=== PATIENT | female | born 1985 | race Caucasian/White ===

== ENCOUNTER → 2017-10-30 15:03 | Outpatient (CLI) | payer SELFPAY ==
[2017-10-30 15:49] LABS: Glucose Challenge Gest 1H 50g 86 mg/dL (70-140)
== END ==
PROVIDERS: Family Provider Family Medicine; PCP Family Medicine; Visit Provider Obstetrics & Gynecology
DX: Z34.90 Encounter for supervision of normal pregnancy, unspecified, unspecified trimester (principal); Z3A.00 Weeks of gestation of pregnancy not specified
CPT/HCPCS: 36415; 82950

== ENCOUNTER → 2017-12-24 17:17 | Outpatient (CLI) | payer SELFPAY ==
[2017-12-24 21:06] LABS: Group B Strep DNA By PCR Negative (Negative); Internal Control PASS; Probe Check PASS; Specimen Processing Control PASS
== END ==
PROVIDERS: Visit Provider Obstetrics & Gynecology
DX: Z34.82 Encounter for supervision of other normal pregnancy, second trimester (principal); Z3A.00 Weeks of gestation of pregnancy not specified
CPT/HCPCS: 87081; 87653

== ENCOUNTER → 2017-12-31 18:10 | Outpatient (CLI) | payer SELFPAY ==
[2017-12-31 20:29] LABS: Group B Strep DNA By PCR Negative (Negative); Internal Control PASS; Probe Check PASS; Specimen Processing Control PASS
== END ==
PROVIDERS: Visit Provider Obstetrics & Gynecology
DX: Z34.82 Encounter for supervision of other normal pregnancy, second trimester (principal)
CPT/HCPCS: 87081; 87653

== ENCOUNTER 2018-01-18 09:55 | Inpatient (IN) | payer SELFPAY ==
[2018-01-14 08:55] VITALS: BMI 31.5
--- NOTE | 2018-01-14 10:31 | PCM.HPOB.BLA ---
History and Physical Date of Admission: 01/18/18 Vital Signs 01/14/18 Height 5 ft 5 in 01/14/18 Weight: 189 lb 6 oz 01/14/18 Body Mass Index (BMI) 31.5 01/14/18 Blood Pressure 108/60 Intake Visit Reasons: 38 WEEKS Chief Complaint: est ob Commissioner Of Officials Required: No Is patient in pain?: No Allergies No Known Allergies Allergy (Verified 01/14/18 10:16) Medications vitamin,calcium,eqtdwraz-srvs-blysl acid tablet 1 tab PO QDAY 10/30/17 [History Confirmed 01/14/18] Last Menstral Period: 04/04/17 Zika: Zika virus screening: Negative : No PFSH PFSH Social History Smoking Status: Never smoker alcohol intake: never substance use type: does not use what type of physical activity do you participate in: none seatbelt use: always do you feel safe at home: Yes Pregancy History 4 Elective abortions Hx Para 2 Spontaneous abortions Hx # Term Pregnancies Ectopic pregnancies Hx # Pregnancies Multiple births # of living children Past Pregnancies Del. Date Name GA/Weeks Outcome Route Bth Weight Infant Gen Labor Lgth Anesthesia Del Locatn Provider FOB Unknown 05/07/2013 Della Unknown Eliecer 01/07/2016 HPI 38 WEEKS: Details: SEVEN STEWARD is a 32 year old who presents for routine OB visit. this is also her peop appointment and she is planning a RLTCS and BTL urine 2 dip glucose negative protein trace OB Visit BOGDAN Calculator Estimated Delivery Date 01/23/18 Based on Ultrasound Date 06/26/17 Current WG 38w 5d Number 1 Expected Delivery Route/Plan RLTCS BTL Specific Issue/Plans flu vaccine declined tdap declined labor support person: Fredo pain management: R cs with BTO : yes PP control planned: BTO special requests: [] Initial Weight: Not Recorded Date EGA Weight BP Urine Prot Glucose FHR FuHt Pres Mov CTX Dilation Effaced St Visit Note Provider Comments 10/30/17 27w 6d 183 lb 6 oz 125/60 150 28 Active absent no vb cramping doing wel SM 11/13/17 29w 6d 184 lb 8 oz 107/63 150 29 Cephalic Active absent no vb lof good fm no regular ctx SM 11/27/17 31w 6d 186 lb 6 oz 107/63 117/68 107/63 Negative Negative 138 31 Cephalic Active absent no vb lof good fm no regular ctx Doing Doing well, some round ligament discomfort. Denies CTX, LOF, VB 12/10/17 33w 5d 188 lb 2 oz 122/69 Negative Negative 140 34 Cephalic Active absent Doing well, some round ligament discomfort. Denies CTX, LOF, VB no vb lof good fm no regular ctx 12/24/17 35w 5d 188 lb 4 oz 117/70 Positive Negative 140 35 Cephalic Active absent 1 5: 0 -4 Doing well, some round ligament discomfort. Denies CTX, LOF, VB no vb lof good fm no regular ctx 12/31/17 36w 5d 191 lb 116/72 Negative Negative 130 Cephalic Active absent 1.5 Doing well, some round ligament discomfort. Denies CTX, LOF, VB 01/07/18 37w 5d 188 lb 2 oz 119/77 1+ Negative 156 37 Cephalic Active absent Doing well, some round ligament discomfort. Denies CTX, LOF, VB NO CTX. Good FM. No VB, LOF 01/14/18 38w 5d 189 lb 6 oz 108/60 150 Cephalic Active absent 1.5 5: 0 Doing well, some round ligament discomfort. Denies CTX, LOF, VB Visit Notes Visit Date: 01/14/18 Doing well, some round ligament discomfort. Denies CTX, LOF, VB Brenad [place], FICTION [employer] NONFICTION AUTHOR-C on 11/27/17 Doing well, some round ligament discomfort. Denies CTX, LOF, VB Brenda [place], FICTION AND NONFICTION AUTHOR-C on 11/27/17 Visit Date: 01/07/18 NO CTX. Good FM. No VB, LOF Brenda [place], FICTION AND NONFICTION AUTHOR-C on 01/07/18 Doing well, some round ligament discomfort. Denies CTX, LOF, VB Brenda Tunde, FICTION AND NONFICTION AUTHOR-C on 11/27/17 Doing well, some round ligament discomfort. Denies CTX, LOF, VB Brenda [place], FICTION AND NONFICTION AUTHOR-C on 11/27/17 Visit Date: 12/31/17 Doing well, some round ligament discomfort. Denies CTX, LOF, VB Brenda [place], FICTION AND NONFICTION AUTHOR-C on 11/27/17 Doing well, some round ligament discomfort. Denies CTX, LOF, VB Brenda Tunde, FICTION AND NONFICTION AUTHOR-C on 11/27/17 Visit Date: 12/24/17 no vb lof good fm no regular ctx Lindsay Sandhu MD on 12/24/17 Doing well, some round ligament discomfort. Denies CTX, LOF, VB Brenda Tunde, FICTION AND NONFICTION AUTHOR-C on 11/27/17 Doing well, some round ligament discomfort. Denies CTX, LOF, VB Brenda Tunde, FICTION AND NONFICTION AUTHOR-C on 11/27/17 Visit Date: 12/10/17 no vb lof good fm no regular ctx Lindsay Sandhu MD on 12/10/17 Doing well, some round ligament discomfort. Denies CTX, LOF, VB Brenda Tunde, FICTION AND NONFICTION AUTHOR-C on 11/27/17 Doing well, some round ligament discomfort. Denies CTX, LOF, VB Brenda Tunde, FICTION AND NONFICTION AUTHOR-C on 11/27/17 Visit Date: 11/27/17 Doing well, some round ligament discomfort. Denies CTX, LOF, VB Brenda Tunde, FICTION AND NONFICTION AUTHOR-C on 11/27/17 Doing Brenda [place], FICTION AND NONFICTION AUTHOR-C on 11/27/17 no vb lof good fm no regular ctx Lindsay Sandhu MD on 11/13/17 no vb lof good fm no regular ctx Lindsay Sandhu MD on 11/13/17 Visit Date: 11/13/17 no vb lof good fm no regular ctx Lindsay Sandhu MD on 11/13/17 Visit Date: 10/30/17 no vb cramping doing wel Lindsay Sandhu MD on 11/01/17 Diagnostics Diagnostics Labs Blood Type A POSITIVE 07/31/17 Antibody Screen NEGATIVE 07/31/17 Hct 33.0 % (37-47) L 07/31/17 Hgb 11.6 g/dl (12.0-15.0) L 07/31/17 Obstetrics Ultrasound 08/31/17 Rubella IgG Antibody 227.7 IU/mL 07/31/17 RPR NONREACTIVE (NONREACTIVE) 07/31/17 Hep Bs Antigen Negative (Negative) 07/31/17 Chlam trachomat DNA PCR Negative (Negative) 06/26/17 N.gonorrhoeae DNA (PCR) Negative (Negative) 06/26/17 Glucose 1 Hr 50 gm 86 mg/dL (70-140) 10/30/17 Group B Strep DNA Negative (Negative) 12/31/17 Details: HIV: Urine Culture: Sequential Screen: NIPT Screen: ROS Const Denies fever(s) GI Denies abdominal pain, Reports as per HPI Denies vaginal discharge, Denies abnormal vaginal bleeding, Reports as per HPI Exam Const General: healthy appearing, comfortable, no acute distress HENMT Head: normal to inspection Nose: external nose normal Face and sinus: normal facial exam Neck Neck: normal visual inspection, full ROM, no lymphadenopathy Thyroid: thyroid normal Chest Chest palpation & inspection: normal inspection of the chest Resp Effort & Inspection: normal respiratory effort GI Inspection: normal to inspection Palpation: soft, nontender Assessment & Plan Problems 1. Continuing after spontaneous of one fetus or more, second trimester, fetus 1 O31.12X1 2. Encounter for supervision of other normal in second trimester Z34.82 PRR BOGDAN 01/23/18 boy REJI Shane Gonzálesil Fredo 3. History of delivery Z98.891 plan repeat cs and BTL- 74% likelihood of success, declines unless spontaneous labor Plan plan RLTCS and BTL thursday Orders placed: none movement and labor precautions reviewed. ACOG trimester education reviewed and updated. see problem list details for updated plan management information. GA appropriate handout given. Orders Orders: POC Urinalysis 2 Dip (Clinic) Today Coding Level of Care Code OB Routine Diagnoses Continuing after spontaneous of one fetus or more, second trimester, fetus 1 O31.12X1 Encounter for supervision of other normal in second trimester Z34.82 Normal : other normal Trimester: second trimester History of delivery Z98.891
[2018-01-18] VITALS (17 sets, daily range): BP systolic 101–118; BP diastolic 52–70; PULSE 62–77; RESP 16–18; TEMP 36–36.9; O2SAT 16–100; BMI 31.2
--- NOTE | 2018-01-18 | FALS_PTH ---
PATIENT: SEVEN STEWARD LOC: [facility] U#:[id number] AGE/SX: 32/F ROOM: WP010 RE01/18/[address]: Dr. Lindsay Sandhu MD : 1985 BED: 1 DIS: 01/20/2018 SPEC #: [id number] RECD: 01/18/18 14:46 STATUS: SAMANTHA REEspinoza #: [id number] MAHENDRA: 01/18/18 00:[address]: Davie De La Cruz DEPT: SURGICAL PATHOLOGY RECD BY: Geovani Anders ENTERED: 01/18/18 14:46 SP TYPE: FALL TUBES OTHR DR: Dr. Lindsay Sandhu MD No Primary Care Phys Tissues: Fallopian tube Procedures: Surgery Specimen Level II HEADER OPERATION: Tubal ligation PRE-OP DIAGNOSIS: Routine TISSUE SUBMITTED: Fallopian tubes, suture in left tube MICROSCOPIC DIAGNOSIS Bilateral fallopian tubes, tubal ligation: Completely transected segments of bilateral fallopian tubes, no pathologic diagnosis. :olaf 01/19/18 MICROSCOPIC DESCRIPTION Slides are reviewed. GROSS DESCRIPTION Received is one container labeled with the patient's name and designated fallopian tubes, left with suture. The specimen consists of two fallopian tubes. The right side measures 2 cm in length and 0.6 cm in average diameter and the left side measures 1.2 cm in length and 0.6 cm in average diameter. No mass lesions are identified. The specimen is totally submitted in two cassettes as follows: 1 ? right fallopian tube, 2 ? left fallopian tube. / AM:olaf 01/18/18 TC:4 CPT: 61896 x2
[2018-01-18] MEDS: Lactated Ringers 1,000 ML 999 ML IV (10:35)
[2018-01-18 11:19] LABS: Basophil% 0.2 % (0-1); Eosinophils% 0.3 % (0-5); Hematocrit 36.4 % (37-47); Hemoglobin 11.9 g/dl (12.0-15.0); Mean Corp Hgb Conc 32.7 g/gl (32-36); Mean Corpuscular Hgb 27.9 pg (27.0-32.0); Mean Corpuscular Volume 85.2 fL (81-99); Monocyte% 5.5 % (0-10); Neutrophil % 74.3 % (47-70); Platelet Count 277 K/mm3 (150-450); RBC Distribution Width CV 15.5 % (11.6-14.6); RBC Distribution Width SD 47.6 fl (35.1-43.9); Red Blood Count 4.27 M/mm3 (4.2-5.4); White Blood Count 9.6 K/mm3 (4.4-11.0)
[2018-01-18 11:20] LABS: Absolute Lymphocyte Count 1.72 X10^3/ul (0.83-4.51); Absolute Neutrophil Count 7.1 X10^3/uL (2.0-7.7); Basophil# 0.02 X10^3/uL; Eosinophil# 0.03 X10^3/uL; Lymphocyte # 1.72 X10^3/ul (4.0); Monocyte# 0.53 X10^3/uL; POSITIVE COUNT NO; POSITIVE DIFFERENTIAL NO; POSITIVE MORPHOLOGY NO
[2018-01-18] MEDS: Sodium Citrate/Citric Acid 30 ML UDC PO (12:05)
[2018-01-18] MEDS: Lactated Ringers 1,000 ML 150 ML IV (12:10)
[2018-01-18] MEDS: Cefazolin 2 GM in 0.9% Normal Saline 100 ML IV (12:12)
[2018-01-18] MEDS: Oxytocin 30 units/NS 500 ml 30 UNITS/500 ML IV.SOLN 167 UNITS IV (12:37)
[2018-01-18] MEDS: Lactated Ringers 1,000 ML 100 ML IV ×2 (13:15→20:50)
--- NOTE | 2018-01-18 17:21 | OP.PCM_ITS ---
Problem List (1) History of delivery Status: Acute Comment: plan repeat cs and BTL- 74% likelihood of success, declines unless spontaneous labor Report of Operation Pre-Operative Diagnosis: previous csection sterilization Post-Operative Diagnosis: same Surgery/Procedure Performed:: repeat c section and btl small engine technician: Timbo Nash Type of Anesthesia:: Spinal Drains: mena Estimated Blood Loss (mL): 700 Fluids Replaced: crystalloid Description of Procedure: The patient is a 32-year-old presented for heat . Spinal anesthesia was placed without difficulty. Mena catheter was placed. The patient was placed in the dorsal supine position with leftward tilt. Patient was prepped and draped in the normal sterile fashion. Pfannenstiel skin incision was made with the scalpel and carried through to the underlying layer of fascia with the scalpel. Fascia was nicked in the midline and the incision extended laterally. The rectus bellies were dissected off superiorly and inferiorly with out complication both sharply and bluntly. The peritoneum was entered digitally. The incision was stretched and a low transverse uterine incision was made with the scalpel. The infant's head was delivered atraumatically followed by the anterior and posterior shoulders without complication the rest of the delivered. The cord was clamped and cut and the infant was handed off to awaiting nurse. The placenta was delivered spontaneously immediately following and was noted to be intact and have a three- vessel cord. The uterus was exteriorized cleared of all clots and debris, and the incision was closed in a double layer closure using #1 Monocryl. The uterus was returned to the maternal abdomen and gutters were cleared of all clots and debris. The ovaries and fallopian tubes were noted to be within normal limits. Bilateral fallopian tubes were elevated and transected across the base of the miso salpinx in the proximal and distal portions were tied off with plain gut suture and the communicating portion of the fallopian tube was removed and noted to have excellent hemostasis the peritoneum was closed with 3- 0 Monocryl in a running fashion. Fascia was closed with 0 PDS in a running fashion. Subcutaneous tissue was copiously irrigated and the skin was closed with 3-0 Monocryl in a subcuticular fashion. Steri-Strips and Mepilex dressing were applied without complication. Patient was taken to recovery in stable condition. Grafts/Implants Used: none - Complications none
[2018-01-18] MEDS: Ketorolac 30 MG/ML Syringe IV (18:23)
--- NOTE | 2018-01-18 21:09 | NURSING ---
Patient up to bathroom and performed jeff care. Patient tolerated activity well.
[2018-01-19] VITALS (9 sets, daily range): BP systolic 88–107; BP diastolic 47–72; PULSE 61–70; RESP 16–18; TEMP 36.3–37.1; O2SAT 96–99
[2018-01-19] MEDS: Ketorolac 30 MG/ML Syringe IV ×4 (00:17→18:03)
[2018-01-19] MEDS: 0.9% Saline Lock 10 ML Syringe IV ×4 (00:17→18:03)
[2018-01-19 04:45] LABS: Hematocrit 30.4 % (37-47); Hemoglobin 10.1 g/dl (12.0-15.0); Mean Corp Hgb Conc 33.2 g/gl (32-36); Mean Corpuscular Hgb 28.5 pg (27.0-32.0); Mean Corpuscular Volume 85.9 fL (81-99); Mean Platelet Vol. 9.9 fl (6.2-12.0); Platelet Count 237 K/mm3 (150-450); RBC Distribution Width CV 15.5 % (11.6-14.6); RBC Distribution Width SD 46.9 fl (35.1-43.9); Red Blood Count 3.54 M/mm3 (4.2-5.4); White Blood Count 9.7 K/mm3 (4.4-11.0)
[2018-01-19 04:50] LABS: Scan Indicated on CBC? Y/N NO
[2018-01-19] MEDS: Senna/Docusate Sodium 1 Tablet PO (07:53)
--- NOTE | 2018-01-19 08:10 | PCM.PN.OB ---
Subjective: Denies CP, SOB, NV. Pain well controlled. - Physical Exam General: Alert, Oriented x3 Abdomen: Soft, Non Tender, - - FF 2 below U. Dressing dry and intact Vital Signs Temp Pulse Resp BP Pulse Ox 98.2 F 70 18 92/50 L 99 01/19/18 04:00 01/19/18 04:00 01/19/18 06:00 01/19/18 04:00 01/19/18 06:00 Oxygen Delivery Method Room Air Weight: 188 lb Body Mass Index (BMI) 31.2 Intake and Output for Last 24 Hours 01/17/18 01/18/18 01/19/18 23:59 23:59 23:59 Intake Total 1272 / 1272 1844 / 1844 Output Total 350 / 350 1500 / 1500 Balance 922 / 922 344 / 344 Laboratory Tests Past 24 Hrs 01/18/18 01/18/18 01/19/18 10:35 10:35 04:10 WBC 9.6 9.7 RBC 4.27 3.54 L Hgb 11.9 L 10.1 L Hct 36.4 L 30.4 L MCV 85.2 85.9 MCH 27.9 28.5 MCHC 32.7 33.2 RDW 15.5 H 15.5 H RDW Differential 47.6 H 46.9 H Plt Count 277 237 MPV 10.0 9.9 Immature Gran % (Auto) 1.700 H Neut % (Auto) 74.3 H Lymph % (Auto) 18.0 L [place] % (Auto) 5.5 Eos % (Auto) 0.3 Baso % (Auto) 0.2 Absolute Neuts (auto) 7.1 Absolute Lymphs (auto) 1.72 Total Counted Not Reportable Blood Type A POSITIVE Antibody Screen NEGATIVE Medical Necessity - Tobacco Use Smoking Status: Never smoker Assessment/Plan RCS POD #1: Doing well. . Normal lochia, pain controlled. Routine care.
[2018-01-19] MEDS: Prenatal Vits Tablet 1 TABLET PO (12:02)
[2018-01-19] MEDS: oxyCODONE 5 MG Tablet PO ×3 (12:02→21:19)
[2018-01-20] MEDS: Ketorolac 30 MG/ML Syringe IV ×3 (00:26→12:11)
[2018-01-20] MEDS: 0.9% Saline Lock 10 ML Syringe IV ×3 (00:27→12:12)
[2018-01-20 00:45] VITALS: BP 100/50; PULSE 75; RESP 20; TEMP 36.2; O2SAT 95
[2018-01-20] MEDS: oxyCODONE 5 MG Tablet PO (04:36)
[2018-01-20 07:10] LABS: Pathology Specimen OB SEE PATHOLOGY REPORT
--- NOTE | 2018-01-20 08:09 | PCM.PN.OB ---
Subjective: Doing well. Ambulating, voiding,flatulence. Denies CP, SOB, NV. - Physical Exam General: Alert, Oriented x3 Abdomen: Soft, Non Tender, Non-Distended, - - FF 2 below U. Dressing dry and intact Vital Signs Temp Pulse Resp BP Pulse Ox 97.2 F L 75 20 H 100/50 L 95 01/20/18 00:45 01/20/18 00:45 01/20/18 00:45 01/20/18 00:45 01/20/18 00:45 Oxygen Delivery Method Room Air Weight: 188 lb Body Mass Index (BMI) 31.2 Intake and Output for Last 24 Hours 01/18/18 01/19/18 01/20/18 23:59 23:59 23:59 Intake Total 1272 / 1272 1844 / 1844 Output Total 350 / 350 3400 / 3400 Balance 922 / 922 -1556 / -1556 Medical Necessity - Tobacco Use Smoking Status: Never smoker Assessment/Plan RCS BTO POD #2: routine care. Pain well controlled with PO meds. . Rh positive. Plan home today
[2018-01-20 08:30] VITALS: BP 100/65; PULSE 79; RESP 16; TEMP 36.6; O2SAT 98
--- NOTE | 2018-01-20 08:48 | DCINST_ITS ---
Discharge Diet: No Restrictions Discharge Activity: May Not Drive - for 2 weeks or while taking narcotic pain meds., May Shower, May Take a Tub Bath - in 7 days. May resume sexual activity in: 4-6 weeks Lifting Restrictions: 20 pounds Additional Activity Instructions:: Nothing in the vagina for 4-6 weeks. You may return to work/school in 6 weeks. Call your doctor if your incision/area has: Continuous Slow Oozing, Sudden Increased Bleeding, Increased Pain/ Swelling, Increased Redness, Foul Smelling Discharge Call your doctor if you observe: Fever of 101 or Higher Suture Line Care: Avoid Pulling/Pushing, Avoid Pinching/Bending Additional Instructions: If you experience any of the following, contact your healthcare provider. * Bleeding that soaks a pad every hour for 2 hours * Fever 100.4 or higher * Unrelieved incision or abdominal pain * Swelling, redness, discharge or bleeding from your incision or episiotomy site * Your incision begins to separate * Problems urinating (including inability to urinate or burning while urinating) . * Visual changes * Severe headache * Flu-like symptoms * Pain or redness in one of both of your breasts * Pain, warmth, tenderness or swelling in your legs, especially the calf area * Frequent nausea and vomiting * Symptoms of depression or anxiety If you experience any of the following, call 911 or go to the nearest Emergency Room. * Chest pain * Problems breathing * Seizure activity * Partial or complete paralysis of a body part, slurred speech, weakness or drooping of the face, or a sudden inability to walk or hold your balance Allergies/Adverse Reactions: Allergies No Known Allergies Allergy (Verified 01/14/18 10:16) Medications to take at Discharge vitamin,calcium,qkiouwxh-fxbc-wrjjr acid tablet 1 tab PO QDAY 10/30/17 Naproxen 500 mg PO BID #60 tab 01/20/18 Oxycodone HCl/Acetaminophen [Percocet 5/325] 1 - 2 tablet PO Q4H PRN PRN 7 Days #28 tablet 01/20/18 The following prescriptions were given: Oxycodone HCl/Acetaminophen [Percocet 5/325] 1 - 2 tablet PO Q4H PRN PRN 7 Days #28 tablet PRN Reason: Pain Naproxen 500 mg PO BID #60 tab Follow-Up: Call to make an appointment with your doctor for an incision check in 1-2 weeks. You will also need a 6 week post- follow up appointment. Primary Care Physician: Davie Hensley [Primary Care Provider] -
[2018-01-20] MEDS: Prenatal Vits Tablet 1 TABLET PO (09:59)
[2018-01-20] MEDS: Senna/Docusate Sodium 1 Tablet PO (09:59)
[2018-01-20 13:00] VITALS: BP 114/74; PULSE 76; RESP 16; TEMP 36.7; O2SAT 98
== END 2018-01-20 13:00 | disposition home or self-care (01) | DRG 766 ==
PROVIDERS: Admitting Provider Obstetrics & Gynecology; Family Provider Family Medicine; PCP Family Medicine; Visit Provider Obstetrics & Gynecology
PROC: 10D00Z1 Extraction of Products of Conception, Low, Open Approach (ICD-10-PCS; CPT 59514; principal; 2018-01-18 11:45)
DX: O34.211 Maternal care for low transverse scar from previous cesarean delivery (principal); O31.13X1 Continuing pregnancy after spontaneous abortion of one fetus or more, third trimester, fetus 1; Z30.2 Encounter for sterilization; Z3A.38 38 weeks gestation of pregnancy; Z37.0 Single live birth
CPT/HCPCS: 85025; 85027; 86850; 86900; 88302; 99218; J7120; A4216; G0378

== ENCOUNTER → 2021-09-19 11:10 | Outpatient (CLI) | payer SELFPAY ==
[2021-09-19 11:30] LABS: Absolute Lymphocyte Count 1.74 X10^3/uL (0.83-4.51); Absolute Neutrophil Count 4.9 X10^3/uL (2.0-7.7); Basophil# 0.05 X10^3/uL; Basophil% 0.7 % (0-1); Eosinophil# 0.03 X10^3/uL; Eosinophils% 0.4 % (0-5); Hematocrit 35.8 % (37-47); Hemoglobin 12.3 g/dL (12.0-15.0); Lymphocyte # 1.74 X10^3/ul (0.83-4.51); Lymphocyte % 24.3 % (19-41); Mean Corp Hgb Conc 34.4 g/dL (32-36); Mean Corpuscular Hgb 28.5 pg (27.0-32.0); Mean Corpuscular Volume 83.1 fL (81-99); Mean Platelet Vol. 9.5 fl (6.2-12.0); Monocyte% 5.6 % (0-10); NRBC Flagged by Analyzer 0 % (0-5); Neutrophil # 4.92 X10^3/uL (2.7-7.7); Neutrophil % 68.7 % (47-70); Platelet Count 334 K/mm3 (150-450); RBC Distribution Width CV 12.9 % (11.6-14.6); RBC Distribution Width SD 39.4 fl (35.1-43.9); Red Blood Count 4.31 M/mm3 (4.2-5.4); White Blood Count 7.2 K/mm3 (4.4-11.0)
[2021-09-19 11:56] LABS: Vitamin D,25 Hydroxy 27.5 ng/mL
[2021-09-19 12:02] LABS: Thyroid Stim Hormone (TSH) 1.12 uIU/mL (0.358-3.74)
[2021-09-22 07:46] LABS: Testosterone Free 1.5 pg/mL (0.0-4.2)
== END ==
PROVIDERS: PCP Family Medicine; Referring Provider Nurse Practitioner Women's Health; Visit Provider Nurse Practitioner Women's Health
DX: N92.0 Excessive and frequent menstruation with regular cycle (principal); L68.0 Hirsutism; R53.83 Other fatigue; Z13.21 Encounter for screening for nutritional disorder
CPT/HCPCS: 36415; 82306; 82627; 84402; 84443; 85025; 82626

== ENCOUNTER 2021-10-08 20:41 | Outpatient (CLI) | payer SELFPAY ==
[2021-10-14 12:54] LABS: HPV APTIMA, High Risk Negative
== END 2021-10-08 23:59 | disposition home or self-care (01) ==
LOC: LABSPEC 01-01 20:41
PROVIDERS: PCP Family Medicine; Visit Provider Nurse Practitioner Women's Health
DX: Z12.4 Encounter for screening for malignant neoplasm of cervix (principal)
CPT/HCPCS: 87624; 88175; G0145